=== PATIENT | female | born 1985 | race Caucasian/White ===

== ENCOUNTER 2016-09-06 08:05 | Emergency (ER) | payer BC, MEDICAID ==
[2016-09-06] MEDS ORDERED: Sodium Chloride 0.9% 10 ML Syringe FLUSH PRN (08:30)
[2016-09-06] MEDS ORDERED: Aspirin 81 MG Tab.Chew PO ONE (08:30)
--- NOTE | 2016-09-06 08:39 | EDM.PDOC ---
ED HISTORY OF PRESENT ILLNESS - General Chief Complaint: Chest Pain Stated Complaint: CHEST PAIN Time Seen by Provider: 09/06/16 08:24 Source of Information: Reports: Patient History Limitations: Reports: No limitations - History of Present Illness INITIAL COMMENTS - FREE TEXT/NARRATIVE: The patient presents with midsternal chest pain that started yesterday. She was helping her friend clean yesterday when she noticed it. The pain is like a tightness. She has some shortness of breath. She has some nausea with it. The pain comes and goes. It is made worse by sitting up and laying flat makes it better. She has no fever, chills or cough. She has no swelling or pain in her legs. She has never had this before. She has no history of heart disease, diabetes, HTN or PE. She does have a family history of heart disease. She does not smoke. She has a lap band and sometimes that hurts but this is in her chest. Timing/Duration: Reports: Day(s): (Yesterday) Severity: moderate Location, General: Reports: chest Quality: Reports: Other (Tightness) Improves with: Reports: None Worsens with: Reports: None Context, General: Reports: Activity Associated Symptoms (General): Reports: chest pain, shortness of breath. Denies : cough, fever/chills, nausea/vomiting - Related Data Allergies/ADRs: Allergies Allergy/AdvReac Type Severity Reaction Status Date / Time monocycline Allergy Swelling Uncoded 09/06/16 08:14 Home Meds: Home Meds Sertraline [Zoloft] 25 mg PO DAILY 09/06/16 [History] lamoTRIgine [Lamictal XR] 300 mg PO DAILY 09/06/16 [History] Past Medical History Psychiatric History: Reports: Depression - Past Surgical History GI Surgical History: Reports: Bariatric procedure, Other (see below) Other GI Surgeries/Procedures: Lap band Social & Family History - Tobacco Use Smoking Status *Q: Never Smoker - Caffeine Use Caffeine Use: Reports: Tea - Recreational Drug Use Recreational Drug Use: No ED ROS GENERAL - Review of Systems Review Of Systems: See Below Constitutional: Reports: no symptoms HEENT: Reports: No symptoms Respiratory: Reports: Shortness of Breath Cardiovascular: Reports: Chest pain Endocrine: Reports: no symptoms GI/Abdominal: Reports: No symptoms : Reports: no symptoms Musculoskeletal: Reports: no symptoms Skin: Reports: no symptoms Neurological: Reports: No Symptoms ED EXAM, GENERAL - Physical Exam Exam: See Below Exam Limited By: No limitations General Appearance: alert, no apparent distress Ears: normal external exam Nose: normal inspection Head: atraumatic, normocephalic Neck: normal inspection Respiratory/Chest: no respiratory distress, lungs clear, normal breath sounds Cardiovascular: regular rate, rhythm, no edema, no murmur GI/Abdominal: soft, no mass, tender (Mild to moderate tenderness to the right upper abdomen) Back Exam: normal inspection Extremities: normal inspection EKG INTERPRETATION EKG Date: 09/06/16 Time: 08:16 Rhythm: other (sinus tachycardia) Rate (beats/min): 100 [place]: normal P-wave: present QRS: normal ST-T: normal QT: normal Course - Vital Signs Last Recorded V/S: Last Vital Signs Temp 97.6 F 09/06/16 08:09 Pulse 106 H 09/06/16 08:09 Resp 18 09/06/16 08:09 BP 134/72 09/06/16 08:09 Pulse Ox 100 09/06/16 08:09 - Orders/Labs/Meds Orders: Active Orders 24 hr Category Date Time Status Cardiac Monitoring [RC] . DIRECTED Care 09/06/16 08:30 Active EKG Documentation Completion [RC] STAT Care 09/06/16 08:31 Active Oxygen Therapy [RC] PRN Care 09/06/16 08:30 Active Peripheral IV Care [RC] . DIRECTED Care 09/06/16 08:31 Active Chest 2V [CR] Stat Exams 09/06/16 08:31 Taken Sodium Chloride 0.9% [Saline Flush] Med 09/06/16 08:30 Active 10 ml FLUSH ASDIRECTED PRN Peripheral IV Insertion Adult [OM.PC] Stat Oth 09/06/16 08:30 Ordered Medication Orders Sodium Chloride (Saline Flush) 10 ml FLUSH ASDIRECTED PRN PRN Reason: Keep Vein Open Last Admin: 09/06/16 08:42 Dose: 10 ml Labs: Laboratory Tests 09/06/16 09/06/16 09/06/16 Range/Units 08:16 08:16 08:16 WBC 7.15 (3.98-10.04) K/mm3 RBC 4.19 (3.98-5.22) M/mm3 Hgb 12.0 (11.2-15.7) gm/L Hct 36.3 (34.1-44.9) % MCV 86.6 (79.4-94.8) fl MCH 28.6 (25.6-32.2) pg MCHC 33.1 (32.2-35.5) g/dl RDW Std Deviation 44.4 (36.4-46.3) fL Plt Count 372 H (182-369) K/mm3 MPV 9.3 L (9.4-12.3) fl Neut % (Auto) 57.0 (34.0-71.1) % Lymph % (Auto) 28.4 (19.3-51.7) % [place] % (Auto) 11.6 (4.7-12.5) % Eos % (Auto) 2.5 (0.7-5.8) Baso % (Auto) 0.4 (0.1-1.2) % Neut # (Auto) 4.07 (1.56-6.13) K/mm3 Lymph # (Auto) 2.03 (1.18-3.74) K/mm3 [place] # (Auto) 0.83 H (0.24-0.36) K/mm3 Eos # (Auto) 0.18 (0.04-0.36) K/mm3 Baso # (Auto) 0.03 (0.01-0.08) K/mm3 D-Dimer, Quantitative 0.50 (0.19-0.59) mg/L Sodium 141 (136-145) mEq/L Potassium 3.5 (3.5-5.1) mEq/L Chloride 104 (98-107) mEq/L Carbon Dioxide 26 (21-32) mEq/L Anion Gap 14.5 (5-15) BUN 10 (7-18) mg/dL Creatinine 0.9 (0.55-1.02) mg/dL Est Cr Clr Drug Dosing 74.78 mL/min Estimated GFR (MDRD) > 60 (>60) mL/min BUN/Creatinine Ratio 11.1 L (14-18) Glucose 109 H (74-106) mg/dL Calcium 8.8 (8.5-10.1) mg/dL Total Bilirubin 0.5 (0.2-1.0) mg/dL AST 17 (15-37) U/L ALT 19 (14-59) U/L Alkaline Phosphatase 72 (46-116) U/L Troponin I < 0.017 (0.00-0.056) ng/mL Total Protein 7.6 (6.4-8.2) g/dl Albumin 3.5 (3.4-5.0) g/dl Globulin 4.1 gm/dL Albumin/Globulin Ratio 0.9 L (1-2) TSH 3rd Generation 1.048 (0.358-3.74) uIU/mL Meds: Medications Generic Name Dose Route Start Last Admin Trade Name Freq PRN Reason Stop Dose Admin Sodium Chloride 10 ml 09/06/16 08:30 09/06/16 08:42 Saline Flush FLUSH 10 ml ASDIRECTED PRN Administration Keep Vein Open Discontinued Medications Generic Name Dose Route Start Last Admin Trade Name Freq PRN Reason Stop Dose Admin Aspirin 324 mg 09/06/16 08:30 09/06/16 08:42 Aspirin PO 09/06/16 08:31 324 mg ONETIME ONE Administration - Re-Assessments/Exams Free Text/Narrative Re-Assessment/Exam: 09/06/16 08:41 I ordered an IV saline lock, aspirin 324mg by mouth, EKG, CXR and labs. Her EKG shows a sinus tachycardia with no acute changes. 09/06/16 09:33 Her CXR looks good. Her CBC looks good. Her CMP looks good. Her D-dimer and troponin are negative. Her TSH is negative. She is feeling better. I feel this is pleurisy. She cannot take antiinflammatories because of her lap band. I will have her take tylenol for the pain. Departure - Departure Time of Disposition: 09:35 Disposition: Home, Self-Care 01 Condition: good Clinical Impression: Atypical chest pain, Pleurisy Forms: ED Department Discharge Additional Instructions: Take tylenol for the pain. Please return if the pain is worse, if you are more short of breath or if you get sweaty with it. If you are interested there is [facility] in [place]. Dee Borja TECHNICAL OPERATIONS SPECIALIST runs that clinic and her number is . There is also a clinic in [place] ran by Caleb Real MD. His number is . - My Orders Last 24 Hours: My Active Orders 09/06/16 08:30 Cardiac Monitoring [RC] . DIRECTED Oxygen Therapy [RC] PRN Sodium Chloride 0.9% [Saline Flush] 10 ml FLUSH ASDIRECTED PRN Peripheral IV Insertion Adult [OM.PC] Stat 09/06/16 08:31 EKG Documentation Completion [RC] STAT Peripheral IV Care [RC] . DIRECTED Chest 2V [CR] Stat - Assessment/Plan Last 24 Hours: My Active Orders 09/06/16 08:30 Cardiac Monitoring [RC] . DIRECTED Oxygen Therapy [RC] PRN Sodium Chloride 0.9% [Saline Flush] 10 ml FLUSH ASDIRECTED PRN Peripheral IV Insertion Adult [OM.PC] Stat 09/06/16 08:31 EKG Documentation Completion [RC] STAT Peripheral IV Care [RC] . DIRECTED Chest 2V [CR] Stat
[2016-09-06 09:59] VITALS: BP 143/63
--- NOTE | 2016-09-06 14:38 | CR ---
Chest: Two views of the chest were obtained. Comparison: No previous study. Heart size and mediastinum are normal. Small nodule noted within the left base most likely representing minimal granuloma. Lungs otherwise are clear. Bony structures appear within normal limits for the patient's age. Impression: 1. Incidental finding. Nothing acute is identified on two-view chest x-ray. Diagnostic code #2
== END 2016-09-06 09:52 | disposition home or self-care (01) ==
LOC: JD.ED 08:05
DX: R09.1 Pleurisy (principal); F32.9 Major depressive disorder, single episode, unspecified; Z98.84 Bariatric surgery status; Z79.899 Other long term (current) drug therapy; Z88.1 Allergy status to other antibiotic agents
CPT/HCPCS: 36415; 71020; 80053; 84443; 84484; 85025; 85379; 93005; 99285; A9270; J7050; 99284

== ENCOUNTER 2016-11-23 16:34 | Emergency (ER) | payer BC, MEDICAID ==
[2016-11-23 16:51] VITALS: BP 125/71
--- NOTE | 2016-11-23 16:59 | EDM.PDOC ---
ED HPI GENERAL MEDICAL PROBLEM - General Chief Complaint: Lower Extremity Injury/Pain Stated Complaint: TOE INJURY Time Seen by Provider: 11/23/16 16:57 Source of Information: Reports: Patient History Limitations: Reports: No Limitations - History of Present Illness INITIAL COMMENTS - FREE TEXT/NARRATIVE: 31-year-old female presents to the ED with injuries to her right third and fourth toes that occurred about 6:00 this morning. States Marni tower fell over and landed hard on her foot earlier this morning. As the day has gone on the pain is increased tremendously particularly in the third and fourth distal toes. His heel walking on the side. Reports no other injuries. Onset: Today Onset Date: 11/23/16 Onset Time: 06:00 Duration: Hour(s): (About 11 hours.) Location: Reports: Lower Extremity, Right (Right third and fourth toes.) Quality: Reports: Ache, Throbbing Severity: Moderate Improves with: Reports: None Worsens with: Reports: Movement Context: Reports: Trauma. 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 4-Ring toe Pain Score (Numeric/FACES): 7 - Related Data Allergies Allergy/AdvReac Type Severity Reaction Status Date / Time monocycline Allergy Swelling Uncoded 11/23/16 16:50 Home Meds: Home Meds Sertraline [Zoloft] 25 mg PO DAILY 09/06/16 [History] lamoTRIgine [Lamictal XR] 300 mg PO DAILY 09/06/16 [History] oxyCODONE HCl/Acetaminophen [Percocet 5-325 mg Tablet] 1 - 2 each PO Q4H PRN # 20 tablet 11/23/16 [Rx] Past Medical History Psychiatric History: Reports: Depression - Past Surgical History GI Surgical History: Reports: Bariatric Procedure, Other (See Below) Social & Family History - Tobacco Use Smoking Status *Q: Never Smoker - Caffeine Use Caffeine Use: Reports: Coffee, Soda - Recreational Drug Use Recreational Drug Use: No - Living Situation & Occupation Living situation: Reports: Occupation: Unemployed Review of Systems - Review of Systems Review Of Systems: See Below Constitutional: Reports: No Symptoms Eyes: Reports: No Symptoms Ears: Reports: No Symptoms, Previous Injury Nose: Reports: No Symptoms Mouth/Throat: Reports: No Symptoms Respiratory: Reports: No Symptoms Cardiovascular: Reports: No Symptoms GI/Abdominal: Reports: No Symptoms Genitourinary: Reports: No Symptoms Musculoskeletal: Reports: Foot Pain (Injury to the right) Skin: Reports: No Symptoms Neurological: Reports: No Symptoms Psychiatric: Reports: No Symptoms ED EXAM, GENERAL - Physical Exam Exam: See Below Exam Limited By: No Limitations General Appearance: Alert, WD/WN, Mild Distress Extremities: Other (Examination was limited to the right dorsal foot. She has pain at the base of her nails of the third and fourth toes particularly. There is mild swelling) Neurological: Alert, Oriented, CN II-XII Intact, Normal Cognition, Normal Gait Psychiatric: Normal Affect, Normal Mood Skin Exam: Dry, Intact, Normal Color, No Rash Course - Vital Signs Last Recorded V/S: Last Vital Signs Temp 36.6 C 11/23/16 16:47 Pulse 98 11/23/16 16:47 Resp 18 11/23/16 16:47 BP 125/71 11/23/16 16:47 Pulse Ox 98 11/23/16 16:47 - Orders/Labs/Meds Orders: Active Orders 24 hr Category Date Time Status Foot Comp Min 3V Rt [CR] Stat Exams 11/23/16 16:58 Taken - Radiology Interpretation Free Text/Narrative:: 31-year-old female presents to the ED for evaluation of injuries to her third and fourth right toes that she sustained earlier this morning when a power and fell on top of her foot. Essentially blunt trauma to the area and pain increasing as the day has gone on. Plan x-rays of the right foot will be done. - Re-Assessments/Exams Free Text/Narrative Re-Assessment/Exam: 11/23/16 17:21 x-rays of the right foot do not reveal any fractures of the distal phalanges. Plan conservative Rx with elevation and ice to the area for one half hour every 4 hours today and tomorrow. Prescription written for Percocet tablets 09/07/24 one or 2 every 4-6 hours needed for pain relief the next 2-3 days due to subungual hematomas. Departure - Departure Time of Disposition: 17:34 Disposition: Home, Self-Care 01 Condition: Fair Clinical Impression: Contusion of third toe, right Qualifiers: Encounter type: initial encounter Qualified Code(s): S90.121A - Contusion of right lesser toe(s) without damage to nail, initial encounter Contusion of fourth toe, right Qualifiers: Encounter type: initial encounter Qualified Code(s): S90.121A - Contusion of right lesser toe(s) without damage to nail, initial encounter - Discharge Information Prescriptions: oxyCODONE HCl/Acetaminophen [Percocet 5-325 mg Tablet] 1 - 2 each PO Q4H PRN # 20 tablet PRN Reason: pain relief. Instructions: Contusion Referrals: Charlette Jensen MD [Primary Care Provider] - Forms: ED Department Discharge Additional Instructions: Evaluation the emergency room today in regards to blunt force trauma to the right third and fourth toes. Swelling is increased over the last 11 hours causing increased pain and throbbing. There is evidence of some blood onto the base of the right third toenail which is called a subungual hematoma. This applies direct pressure to the bone underneath the nail causing the most of the pain. X-rays of foot did not confirm any fractures within the true total bones. Right elevate the foot as much as possible. Ice pack to the area for one half hour out of every 4 hours today and tomorrow. Open toe sandal for wear. May use Motrin 600 mg or Aleve 2 tablets every 8 hours for pain and inflammation. May use Percocet tablets 09/07/24 one or 2 every 4-6 hours for pain not totally controlled by Aleve or Motrin. Expect gradual improvement over the next 3-4 days. - My Orders Last 24 Hours: My Active Orders 11/23/16 16:58 Foot Comp Min 3V Rt [CR] Stat - Assessment/Plan Last 24 Hours: My Active Orders 11/23/16 16:58 Foot Comp Min 3V Rt [CR] Stat
--- NOTE | 2016-11-24 07:39 | CR ---
Right foot: Four views of the right foot were obtained. Comparison: No previous study. Plantar spur is seen. Lucent line is identified within the distal proximal phalanx of the first digit suspicious for nondisplaced fracture which extends into the IP joint. No additional fracture or other abnormality is seen. Impression: 1. Nondisplaced fracture within the distal proximal phalanx of the right first toe with articular extension. 2. Incidental plantar spur. 3. No additional abnormality is identified on right foot study. Diagnostic code #3
== END 2016-11-23 18:00 | disposition home or self-care (01) ==
LOC: JD.ED 16:34
DX: S92.414A Nondisplaced fracture of proximal phalanx of right great toe, initial encounter for closed fracture (principal); S90.121A Contusion of right lesser toe(s) without damage to nail, initial encounter; F32.9 Major depressive disorder, single episode, unspecified; Z98.84 Bariatric surgery status; Z79.899 Other long term (current) drug therapy; Z88.1 Allergy status to other antibiotic agents; W20.8XXA Other cause of strike by thrown, projected or falling object, initial encounter
CPT/HCPCS: 73630-26-RT; 73630-RT; 99283

== ENCOUNTER 2018-05-30 08:17 | Emergency (ER) | payer BC, MEDICAID ==
[2018-05-30 08:31] VITALS: BP 137/57
--- NOTE | 2018-05-30 09:10 | EDM.PDOC ---
ED HPI GENERAL MEDICAL PROBLEM - General Chief Complaint: ENT Problem Stated Complaint: SORE THROAT Time Seen by Provider: 05/30/18 08:40 Source of Information: Reports: Patient, RN Notes Reviewed History Limitations: Reports: No Limitations - History of Present Illness INITIAL COMMENTS - FREE TEXT/NARRATIVE: The patient states that she developed a sore throat and a temperature up to 102 , as measured by an electronic forehead thermometer, this past Monday, 2018. She also reports a foul tasting postnasal drip, and complains of right otalgia. She states that she was seen at the walk-in clinic on Monday morning, 05/28/2018 , and that a rapid strep test returned negative. Her symptoms only got worse, therefore she returned to the walk-in clinic that same evening. They did not perform a second strep test, but did send the strep test for culture. The patient has not heard back from them. The patient denies close contact with anyone with diagnosed strep, however, she reports that she has had diagnosed strep many times in the past, most recently about 2 years ago. The patient's PCP is Dr. Emmanuel. Throat Pain Score (Numeric/FACES): 7 - Related Data Allergies Allergy/AdvReac Type Severity Reaction Status Date / Time monocycline Allergy Swelling Uncoded 05/30/18 08:30 Home Meds: Home Meds lamoTRIgine [Lamictal XR] 300 mg PO DAILY 09/06/16 [History] traZODone HCl [Trazodone HCl] 50 mg PO DAILY 05/30/18 [History] Past Medical History Musculoskeletal History: Reports: Fracture (right great toe) Psychiatric History: Reports: Anxiety, Depression Endocrine/Metabolic History: Reports: Obesity/BMI 30+ - Past Surgical History GI Surgical History: Reports: Bariatric Procedure (Lap band 2016) Social & Family History - Tobacco Use Smoking Status *Q: Never Smoker - Caffeine Use Caffeine Use: Reports: Coffee, Soda - Alcohol Use Alcohol Use History: Yes Alcohol Use Frequency: Socially - Recreational Drug Use Recreational Drug Use: No - Living Situation & Occupation Living situation: Reports: , with Spouse, with Family (2 kids) Occupation: Unemployed ED ROS ENT - Review of Systems Review Of Systems: ROS reveals no pertinent complaints other than HPI. ED EXAM, ENT - Physical Exam Exam: See Below Exam Limited By: No Limitations General Appearance: Alert, WD/WN, No Apparent Distress Eye Exam: Bilateral Eye: EOMI, Normal Inspection Ears: Normal External Exam, Normal Canal, Hearing Grossly Normal, Normal TMs Nose: Normal Inspection, Normal Mucousa, No Blood Mouth/Throat: Normal Gums, Normal Lips, Normal Teeth, Tonsillar Erythema (right only), Tonsillar Exudates (right only), Tonsillar Swelling (right only). No: Throat Swelling, Uvular Deviation, Uvular Edema Head: Atraumatic, Normocephalic Neck: Normal Inspection, Supple, Non-Tender, Full Range of Motion. No: Lymphadenopathy (L), Lymphadenopathy (R) Course - Vital Signs Last Recorded V/S: Last Vital Signs Temp 36.2 C 05/30/18 08:27 Pulse 85 05/30/18 08:27 Resp 16 05/30/18 08:27 BP 137/57 L 05/30/18 08:27 Pulse Ox 99 05/30/18 08:27 - Orders/Labs/Meds Orders: Active Orders 24 hr Category Date Time Status CULTURE STREP A CONFIRMATION [RM] Stat Lab 05/30/18 08:53 Results STREP SCRN A RAPID W CULT CONF [RM] Stat Lab 05/30/18 08:53 Results Labs: Laboratory Tests 05/30/18 Range/Units 09:40 Monoscreen Negative (NEGATIVE) - Re-Assessments/Exams Free Text/Narrative Re-Assessment/Exam: 05/30/18 08:55 The patient has right tonsillar swelling, erythema, and an exudate, while the left looks completely normal. I have carefully swabbed the right tonsil and exudate and sent a swab for a rapid strep test. 05/30/18 09:23 The patient's rapid strep test has returned negative. I have ordered a mononucleosis screen. 05/30/18 10:48 The mononucleosis screen has returned negative, as well. Test results discussed with the patient. She is most likely suffering from viral tonsillitis. Unfortunately, there are no treatments for this. It will have to run its course. I am recommending [id number] Chloraseptic spray and ibuprofen. Departure - Departure Time of Disposition: 10:49 Disposition: Home, Self-Care 01 Condition: Good Clinical Impression: Viral tonsillitis - Discharge Information *PRESCRIPTION DRUG MONITORING PROGRAM REVIEWED*: Not Applicable *COPY OF PRESCRIPTION DRUG MONITORING REPORT IN PATIENT MAXINE: Not Applicable Referrals: Steff Lu MD [Primary Care Provider] - Forms: ED Department Discharge Additional Instructions: You were seen in the emergency room for a sore throat and fever. Workup in the ER included a rapid strep test and a mononucleosis screen. Both test returned negative. While no test is 100% accurate, it is highly unlikely that you have either strep throat or mononucleosis. Based on your history, physical examination, and ER test, you are most likely suffering from viral tonsillitis. Unfortunately, there are no medicines to treat viral tonsillitis - it will have to run its course. We recommend that you take [id number] Tylenol or ibuprofen (ibuprofen will probably work better and last longer), along with Chloraseptic spray and warm salt water gargles. Follow-up with your PCP, Dr. Emmanuel, as needed. If any other problems, please do not hesitate to return to the ER. - My Orders Last 24 Hours: My Active Orders 05/30/18 08:53 CULTURE STREP A CONFIRMATION [RM] Stat STREP SCRN A RAPID W CULT CONF [RM] Stat - Assessment/Plan Last 24 Hours: My Active Orders 05/30/18 08:53 CULTURE STREP A CONFIRMATION [RM] Stat STREP SCRN A RAPID W CULT CONF [RM] Stat
== END 2018-05-30 10:55 | disposition home or self-care (01) ==
LOC: JD.ED 08:17
DX: J03.90 Acute tonsillitis, unspecified (principal); E66.9 Obesity, unspecified; Z98.84 Bariatric surgery status; Z88.8 Allergy status to other drugs, medicaments and biological substances
CPT/HCPCS: 36415; 86308; 87081; 87430; 99283